=== PATIENT | female | born 1960 | race American Indian/Alaskan Native ===

== ENCOUNTER 2017-12-28 09:56 | Outpatient (CLI) | payer BC ==
--- NOTE | 2017-12-28 14:31 | Ultrasound Report ---
THYROID ULTRASOUND:12/28/17 09:56:00 CLINICAL: Goiter. FINDINGS: High-resolution ultrasound demonstrated a mildly enlarged thyroid with mild heterogeneous echogenicity and nodular contour. The right lobe measures 4.4 x 1.9 x 1.5cm. The left lobe measures 4.9 x 1.7 x 1.7cm. The isthmus measures 4 mm AP thickness. A solid oval homogeneous isoechoic left lower lobe nodule measures 1.9 x 1.6 x 0.9 cm. a subtle hypoechoic right upper lobe nodule measures 6 x 5 x 4 mm and a similar subtle hypoechoic upper medial nodule measures 4 x 4 by 4 mm. IMPRESSION: Mild thyroid enlargement with mild nodularity and a dominant 1.9 cm isoechoic left lower lobe nodule. Recommend six month followup ultrasound to reevaluate size of nodules.
== END 2017-12-28 09:57 | disposition home or self-care (01) ==
LOC: SPVWC 09:56
PROVIDERS: ATTEND Family Medicine
DX: E04.1 Nontoxic single thyroid nodule (principal); E04.9 Nontoxic goiter, unspecified; K59.00 Constipation, unspecified
CPT/HCPCS: 76536